=== PATIENT | female | born 1965 | race Caucasian/White ===

== ENCOUNTER 2022-10-12 08:15 | Day surgery (SDC) | payer OTHER, SELFPAY ==
[2022-09-22 11:50] VITALS: BMI 29.3
[2022-10-01 10:35] VITALS: BMI 29.5
--- NOTE | 2022-10-09 16:08 | PM.HPGS ---
History of Present Illness History of Present Illness Consent: Risks, benefits, and alternatives have been discussed and questions answered. Patient agrees to proceed with procedure. Chief complaint: History of Colon Polyps Narrative: Cindi Caraballo is a 57 year old female Referred for colon cancer screening. She had a adenomatous polyp removed from her rectum at the time of her last colonoscopy 6 years ago. Review of Systems Review of Systems: All systems reviewed & are unremarkable except as noted in HPI and below PMFSH Past Medical History Medical History Allergies Overweight (BMI 25.0-29.9) Family History Family History Father Hypertension Family history of lung cancer Grandparent Hypertension Family history of heart disease in male family member before age 55 Mother Family history of malignant neoplasm of breast in first degree relative Sibling Malignant neoplasm of prostate Family history of lung cancer Social History Social History Smoking status: Former smoker Tobacco type: cigarettes Second hand tobacco smoke exposure: No Additional smoking assessment comments: Pt states social smoker in 20's Alcohol intake: current Drinks per week: 4 Alcohol use details: 1 x month Substance use: never Substance use type: does not use Lack of Transportation: No Lack of Food: Never True Current Housing: I Have Housing Concerned About Future Housing: No Difficulty Paying Gas/Electric Bills: No Difficulty Paying for Meds: No Currently Unemployed: No Education: Bachelor's Degree Difficulty w/ Childcare or Family Care: No Living arrangements: with family Spiritual care concerns: No Meds Home Medications and Allergies Home Medications Medication Instructions Recorded Confirmed Type cetirizine 10 mg tablet (Zyrtec) 10 mg PO DAILY PRN Allergy Symptoms 08/19/22 10/12/22 History fluticasone propionate 50 1 spray intranasal DAILY 08/19/22 10/12/22 History mcg/actuation nasal spray,suspension (Flonase Allergy Relief) rhsywsqp-zehsmcxt-nuj C 250 1 tablet PO DAILY 08/19/22 10/01/22 History mg-herbal no.124 11.66 mg chewable tablet (Airborne Gummy) ewoqkbqonybg-tzzxurby-pefz 1 tablet PO DAILY 08/19/22 10/12/22 History fumarate 18 mg-folic acid 400 mcg tablet (One-A-Day Women's Complete) Allergies Allergy/AdvReac Type Severity Reaction Status Date / Time No Known Allergies Allergy Verified 10/12/22 08:45 Exam Const: General: alert Orientation/consciousness: patient oriented x3 Resp: Auscultation: clear to auscultation bilaterally Cardio: Rhythm: regular rhythm GI: GI Palp: Yes Soft to palpation and No Tenderness to palpation present (GI) Neuro: General: patient oriented x3 Assessment and Plan Assessment and plan (1) Screening for colon cancer: Code(s): Z12.11 - Encounter for screening for malignant neoplasm of colon Status: Acute Assessment and Plan: Colonoscopy with possible biopsy or polypectomy or cautery or injection of substances.
--- NOTE | 2022-10-12 08:19 | WPDANESEPPF ---
Anes - Initial Pre Proc Eval Procedure: Operation Date: 10/12/22 10:00 Proposed Procedures p Diagnostic Colonoscopy - Tobias Salmeron MD Date/Time: 10/12/22 08:19 Surgeon: Tobias Salmeron MD Pre Op Diagnosis: History of Colon Polyps Patient Data Age: 57 Gender: F Height: 1.63 m Weight: 78 kg Allergies Allergy/AdvReac Type Severity Reaction Status Date / Time No Known Allergies Allergy Verified 10/12/22 08:45 Home Medications Medication Instructions Recorded Confirmed Type cetirizine 10 mg tablet (Zyrtec) 10 mg PO DAILY PRN Allergy Symptoms 08/19/22 10/12/22 History fluticasone propionate 50 1 spray intranasal DAILY 08/19/22 10/12/22 History mcg/actuation nasal spray,suspension (Flonase Allergy Relief) igoojkve-xuslztpl-nfa C 250 1 tablet PO DAILY 08/19/22 10/01/22 History mg-herbal no.124 11.66 mg chewable tablet (Airborne Gummy) kbkfbaetswao-glkexaup-tgiy 1 tablet PO DAILY 08/19/22 10/12/22 History fumarate 18 mg-folic acid 400 mcg tablet (One-A-Day Women's Complete) Patient hx anesthesia problems: none Family hx anesthesia problems: none Results Review: All pre-operative results and documents have been reviewed as part of the pre-operative evaluation. [facility], [facility] Past Medical History Medical History (Updated 10/12/22 @ 08:21 by Olaf Mason MD) Allergies Overweight (BMI 25.0-29.9) Family History Family History Father Hypertension Family history of lung cancer Grandparent Hypertension Family history of heart disease in male family member before age 55 Mother Family history of malignant neoplasm of breast in first degree relative Sibling Malignant neoplasm of prostate Family history of lung cancer Social History Social History (Updated 08/19/22 @ 08:52 by WALLY Wall) Smoking status: Former smoker Tobacco type: cigarettes Second hand tobacco smoke exposure: No Additional smoking assessment comments: Pt states social smoker in 20's Alcohol intake: current Drinks per week: 4 Alcohol use details: 1 x month Substance use: never Substance use type: does not use Lack of Transportation: No Lack of Food: Never True Current Housing: I Have Housing Concerned About Future Housing: No Difficulty Paying Gas/Electric Bills: No Difficulty Paying for Meds: No Currently Unemployed: No Education: Bachelor's Degree Difficulty w/ Childcare or Family Care: No Living arrangements: with family Spiritual care concerns: No Anes - Eval Final PreProcedure Day of Procedure 10/12/22 08:19 Patient weight: overweight Heart: regular rate and rhythm Lungs: clear to auscultation and normal air movement Airway: Mallampati scale class II Neurological: alert and oriented Last oral intake: >/= 8 hours ASA classification: II Emergent: no Anesthetic plan: proceed Anesthesia type and monitoring: general GIVS Results Review: All pre-operative results and documents have been reviewed as part of the pre-operative evaluation. Informed Consent: The patient's anesthetic plan and its attendant risks and benefits were discussed with the patient/family/POA. Questions were solicited and answers provided to the satisfaction of the patient/family/POA.
[2022-10-12 08:47] VITALS: BP 137/98; PULSE 68; RESP 16; TEMP 36.8; O2SAT 99
[2022-10-12] MEDS: LACTATED RINGERS 1,000 ML 150 ML IV CONT (09:04)
[2022-10-12 10:30] VITALS: BP 106/80; PULSE 62; RESP 20; O2SAT 100
[2022-10-12 10:40] VITALS: BP 110/72; PULSE 62; RESP 20; O2SAT 99
[2022-10-12 10:50] VITALS: BP 118/80; PULSE 64; RESP 20; O2SAT 99
--- NOTE | 2022-10-12 11:31 | WPDANESPN ---
Anes - Prog Note Post-Op Date/Time: 10/12/22 11:31 Cardiovascular status: normal Respiratory status: normal Airway patency: baseline Mental status: baseline Post-Op hydration status: normal Vital Signs: Last Vital Signs Temp 36.8 C 10/12/22 08:47 Pulse 64 10/12/22 10:50 Resp 20 10/12/22 10:50 BP 118/80 10/12/22 10:50 Pulse Ox 99 10/12/22 10:50 O2 Del Method Room Air 10/12/22 10:50 Pain Score (VAS): 0 I/O: Intake & Output 10/11/22 10/12/22 10/12/22 23:59 07:59 15:59 Intake Total 300 Balance 300 Post-procedural complaints: none Patient Feedback: Patient satisfied with anesthetic care.
== END 2022-10-12 11:02 | disposition home or self-care (01) ==
PROVIDERS: PCP Internal Medicine; Visit Provider Internal Medicine Gastroenterology
PROC: 0DJD8ZZ Inspection of Lower Intestinal Tract, Via Natural or Artificial Opening Endoscopic (ICD-10-PCS; CPT 45378; principal; 2022-10-12 10:00)
DX: Z12.11 Encounter for screening for malignant neoplasm of colon (principal)
CPT/HCPCS: 45380

== ENCOUNTER 2022-10-12 09:00 | Outpatient (NON) | payer OTHER, SELFPAY | END 2022-10-12 09:01 | disposition home or self-care (01) | LOC: ANHLAB 10-14 08:04 | PROVIDERS: PCP Internal Medicine; Visit Provider Internal Medicine Gastroenterology | DX: Z12.11 Encounter for screening for malignant neoplasm of colon (principal) | CPT/HCPCS: 88305 ==

== ENCOUNTER 2024-09-22 08:21 | Outpatient (CLI) | payer OTHER, SELFPAY ==
--- OUTSIDE RECORDS SUMMARY | 2024-09-22 08:24 | XMS_ITS | Clinical Summary ---
Author Organization [facility] Address [address] [address] [place] [address] Care Team Providers Care Security Professionals Name Role Phone Luciano Sanders DO Primary Care Provider +1- [phone] Allergies No known active allergies Medications fluticasone (FLONASE) 50 mcg/actuation nasal spray 2 times daily. 05/14/2016 Active sodium chloride (SALINE NASAL) 0.65 % nasal spray 2 sprays in each nare bid 05/14/2016 Active olopatadine 0.6 % spray,non-aeros ol 1-2 sprays each nostril daily 1 Bottle 5 09/15/2017 Active cetirizine (ZyrTEC) 10 mg capsule Active prednisoLONE acetate (PRED FORTE) 1 % ophthalmic suspension SHAKE LIQUID AND INSTILL 1 DROP IN BOTH EYES TWICE DAILY FOR 2 WEEKS 04/19/2024 Active Active Problems Problem Noted Date Diagnosed Date Tinnitus, bilateral 05/25/2024 Annual physical exam 06/04/2023 Assessment & Plan (06/04/2023 8:40 AM COTTON BALL BAGGER): Labs as above. Will call with results when available. Increase exercise to 30 minutes daily and consume healthy foods. Follow up as needed. Preventative health care 06/04/2023 Acute bacterial sinusitis 04/17/2022 Assessment & Plan (06/08/2022 4:08 PM COTTON BALL BAGGER): Augmentin 1 tablet every 12 hours for 10 days. Take with food and full glass of water. Take all of antibiotic. Consider allergy therapy: Zyrtec and Flonase daily. Consider Sudafed 12 HR or Consider Mucinex ER, 600mg, 1-2 tabs every 12 hours as needed for thick mucous. Consider Delsym 2 tsp every 12 hours as needed for cough. Cool mist humidifier in the bedroom. Assessment & Plan (04/17/2022 11:51 AM COTTON BALL BAGGER): Augmentin 1 tablet every 12 hours for 10 days Continue Mucinex DM and Sudafed May want to start Zyrtec Acute non-recurrent maxillary sinusitis 06/25/19 Overview (06/24/2021): Augmentin 1 tablet twice a day for 7 days Recommend zyrtec and flonase If symptoms persists or worsen recommend following up with specialist Hordeolum externum of left lower eyelid 06/25/19 Assessment & Plan (06/24/2021 9:03 AM CDT): Warm compresses to eye 5-10 minutes 3-5 times per day. Chronic infection of sinus 05/14/2016 Chronic rhinitis 05/14/2016 Immunizations Immunization Administration Dates Next Due Influenza, Quadrivalent, Spl it, Preservative Free, Intramuscular 03/26/2022 Pfizer Sars-Cov-2 Bivalent Vaccination (12+ YRS) 03/26/2022 Medical History Medical History Date Comments Tinnitus spring Family History Medical History Relation Name Comments Cancer Brother 1 Luciano Dacosta Cancer Brother 2 Bob Dacosta Cancer Father Allen. R. Bills Cancer Maternal Grandmother Melida Hunt Cancer Mother Chiquita Dacosta Stroke Paternal Grandmother Cherelle Dacosta Relation Name Status Comments Brother 1 Luciano Khans Brother 2 Bob Khans Father Allen. R. Shanks Maternal Grandmother Melida Shearburn Mother Chiquita Dacosta Paternal Grandmother Cherelle Dacosta Social History Tobacco Use Types Packs/Day Years Used Date Smoking Tobacco: Never Comments Unknown Sex and Gender Information Value Date Recorded Sex Assigned at Not on file Legal Sex Female 11:39 AM COTTON BALL BAGGER Gender Identity Not on file Sexual Orientation Not on file Obstetrics History Last Filed Vital Signs Vital Sign Reading Time Taken Comments Blood Pressure 129/81 06/04/2023 7:58 AM COTTON BALL BAGGER Pulse 84 06/04/2023 7:58 AM COTTON BALL BAGGER Temperature 36.6 C (97.8 F) 06/04/2023 7:58 AM COTTON BALL BAGGER Respiratory Rate 16 06/04/2023 7:58 AM COTTON BALL BAGGER Oxygen Saturation 98% 06/04/2023 7:58 AM COTTON BALL BAGGER Inhaled Oxygen Concentration - - Weight 77.1 kg (170 lb) 06/24/2021 9:05 AM CDT Height 162.6 cm (5' 4) 06/24/2021 9:05 AM CDT Body Mass Index 29.18 06/24/2021 9:05 AM CDT Plan of Treatment Health Maintenance Due Date Last Done Comments Breast Cancer Screening-Mammogram 1964 Cervical Cancer Screening 1964 Colon Cancer Screening-Colonoscopy 1964 Depression Screening 1964 Hepatitis C Screening 1964 DTaP/Tdap/Td Vaccine (1 - Tdap) 1975 Hepatitis B Screening 1982 Regular Well Visit/Exam 18-64 1982 Zoster Vaccine (1 of 2) 2014 Covid-19 Vaccine ( - season) 2023 03/26/2022, 03/01/2021, 06/28/2020, Additional history exists Influenza Vaccine (Season Ended) 2024 03/26/2022, 02/22/2019, 03/30/2018, Additional history exists Pneumococcal vaccine <65 Aged Out No longer eligible based on patient's age to complete [place] [address] [facility] CHOICE PLUS [facility] H[facility]/PPO Address: [facility] [address] [place] [address] [place] [address] [place] [address] Care Teams Security Professionals Relationship Specialty Start Date End Date Luciano Sanders DO PCP - General 06/18/16
--- OUTSIDE RECORDS SUMMARY | 2024-09-22 08:24 | XMS_ITS | Referral Summary ---
Author Organization [facility] Address [address] [place] [address] Care Team Providers Care Alodize Machine Operator Name Role Phone Luciano Sanders DO Primary Care Provider +1- [phone] Allergies No known active allergies Medications fluticasone [...] 06/04/2023 Assessment & Plan (06/04/2023 8:40 AM GARNETT MECHANIC): Labs as above. Will call with results when available. Increase exercise to 30 minutes daily and consume healthy foods. Follow up as needed. Preventative health care 06/04/2023 Acute bacterial sinusitis 04/17/2022 Assessment & Plan (06/08/2022 4:08 PM GARNETT MECHANIC): Augmentin 1 tablet every 12 hours for [...] bedroom. Assessment & Plan (04/17/2022 11:51 AM GARNETT MECHANIC): Augmentin 1 tablet every 12 hours for [...] Pfizer Sars-Cov-2 Bivalent Vaccination (12+ YRS) 03/26/2022 Social History Tobacco Use Types Packs/Day Years Used Date Smoking Tobacco: Never Comments Unknown Sex and Gender Information Value Date Recorded Sex Assigned at Not on file Legal Sex Female 11:39 AM GARNETT MECHANIC Gender Identity Not on file Sexual Orientation Not on file Last Filed Vital Signs Vital Sign Reading Time Taken Comments Blood Pressure 129/81 06/04/2023 7:58 AM GARNETT MECHANIC Pulse 84 06/04/2023 7:58 AM GARNETT MECHANIC Temperature 36.6 C (97.8 F) 06/04/2023 7:58 AM GARNETT MECHANIC Respiratory Rate 16 06/04/2023 7:58 AM GARNETT MECHANIC Oxygen Saturation 98% 06/04/2023 7:58 AM GARNETT MECHANIC Inhaled Oxygen Concentration - - Weight 77.1 kg (170 lb) 06/24/2021 9:05 AM CDT Height 162.6 cm (5' 4) 06/24/2021 9:05 AM CDT Body Mass Index 29.18 06/24/2021 9:05 AM CDT Plan of Treatment Not on [place] [place] [address] [facility] CHOICE PLUS [facility] H[facility]/PP[place]: [place] [address] [place] [address] [place] [address] Care Teams Alodize Machine Operator Relationship Specialty Start Date End Date Luciano Sanders DO PCP - General 06/18/16
--- OUTSIDE RECORDS SUMMARY | 2024-09-22 08:24 | XMS_ITS | Clinical Summary ---
Author Organization [facility] Address [address] Attn: Epic Prelude ADT [place] [address] Care Team Providers Care Logistics Supervisor Name Role Phone Kylie Hurley MD Primary Care Provider +1- [phone] Social History Tobacco Use Types Packs/Day Years Used Date Smoking Tobacco: Never Assessed Comments Unknown Sex and Gender Information Value Date Recorded Sex Assigned at Not on file Legal Sex Female 5:19 AM DIGITAL CIRCUIT DESIGNER Gender Identity Not on file Sexual Orientation Not on file Plan of Treatment Health Maintenance Due Date Last Done Comments DTAP/TDAP/TD VACCINES (1 - Tdap) 1983 HPV/Cotest (21-29) 1985 CERVICAL CANCER SCREENING 1994 HPV/Cotest (30-65) 1994 PAP SMEAR 1994 BREAST CANCER SCREENING 2004 COLORECTAL SCREENING 2009 Colorectal Cancer Screening 2009 FIT-DNA Q 3 years 2009 FIT/FOBT Q 1 year 2009 Flex Sig/CT Colonography Q 5 years 2009 ZOSTER VACCINE (1 of 2) 2014 INFLUENZA VACCINE (#1) 2023 RSV VACCINE (60+ or ) (1 - 1-dose 75+ series) 2039 HEPATITIS B VACCINES Aged Out No long er eligible based on patient's age to complete this topic Care Teams Logistics Supervisor Relationship Specialty Start Date End Date Kylie Hurley MD [address] [place] [address] PCP - General 03/29/15
--- OUTSIDE RECORDS SUMMARY | 2024-09-22 08:24 | XMS_ITS | Clinical Summary ---
Author Organization [facility] Address [address] [place] [address] Care Team Providers Care Signal Worker Name Role Phone Unavailable Primary Care Provider Unavailabl e Source Comments [facility],non-owned Affiliates and Associated Physician Practices is amultiple site organization consisting of ambulatory clinics and hospital sitesin [place], [place], [place] and [place]. This disclosure is being madepursuant to the Care Everywhere program and may not contain all information available regarding this patient. Last updated 17.[facility] [employer] Social History Tobacco Use Types Packs/Day Years Used Date Smoking Tobacco: Never Assessed Comments Unknown Sex and Gender Information Value Date Recorded Sex Assigned at Not on file Legal Sex Female 6:02 AM CHEF FRENCH Gender Identity Not on file Sexual Orientation Not on file Plan of Treatment Health Maintenance Due Date Last Done Comments COLOGUARD (AGES 45-75) - COL ON CA SCREENING 1964 COLON MONITORING 1964 COLONOSCOPY - COLON CA SCREENING 1964 CT COLONOGRAPHY - COLON CA SCREENING 1964 Colorectal Cancer Screening 1964 FIT - COLON CA SCREENING 1964 FLEX SIG - COLON CA SCREENING 1964 LIPID TESTING 1964 MAMMOGRAM 1964 HIV SCREENING 1979 HEPATITIS C SCREENING 04/27/1982 DTAP/TDAP/TD VACCINES (1 - Tdap) 1983 PAP SMEAR 1985 PAP with HPV 1994 PNEUMOCOCCAL VACCINE 50+ (1 of 1 - PCV) 2014 ZOSTER VACCINE (1 of 2) 2014 COVID-19 VACCINE ( - 2023-2 5 season) 2023 DEPRESSION SCREENING 04/12/2024 INFLUENZA VACCINE (Season Ended) 2024 Respiratory Syncytial Virus (RSV) Vaccine Pt: or over 60 yrs (1 - 1-dose 75+ series) 2039 HEPATITIS B VACCINE Aged Out No longe r eligible based on patient's age to complete this topic HIB VACCINE Aged Out No longer eligi ble based on patient's age to complete this topic HPV VACCINE Aged Out No longer eligi ble based on patient's age to complete this topic MENINGOCOCCAL (Group B) VACC INE SHARED DECISION-MAKING Aged Out No longer eligibl e based on patient's age to complete this topic MENINGOCOCCAL GROUPS A/C/Y/W VACCINE Aged Out No longer eligible b ased on patient's age to [place] [address] [facility] [place] [address]
--- OUTSIDE RECORDS SUMMARY | 2024-09-22 08:24 | XMS_ITS | Encounter Summary ---
Author Organization [facility] Address [address] [place] [address] Care Team Providers Care Consignee Name Role Phone Kylie Hurley MD Primary Care Provider +1- [phone] Encounter Details Date Type Department Care Team (Late st Contact Info) Description 12/21/2002 Outpatient Historical HIS MAMM VAN Kylie Hurley MD SCREENING MAMM-MAILG NEOPL-OTHER (Primary Dx) Social History Tobacco Use Types Packs/Day Years Used Date Smoking Tobacco: Never Assessed Comments Unknown Sex and Gender Information Value Date Recorded Sex Assigned at Not on file Legal Sex Female 5:19 AM EARLY INTERVENTIONIST Gender Identity Not on file Sexual Orientation Not on file documented as of this encounter Plan of Treatment Not on file documented as of this encounter Visit Diagnoses Diagnosis Other screening mammogram- Primary documented in this encounter Care Teams Consignee Relationship Specialty Start Date End Date Kylie Hurley MD [address] [address] PCP - General 03/29/15 documented as of this encounter
[2024-09-22 12:24] LABS: Basophils Absolute Auto 0.1 K/mm3 (0.0-0.1); Eosinophils Absolute Auto 0.2 K/mm3 (0-0.3); Eosinophils Percent Auto 3.7 % (0-4.4); Hematocrit 43.3 % (37.0-47.0); Hemoglobin 13.6 g/dL (12.0-15.0); Immature Granulocyte Absolute 0.01 K/mm3 (0.00-0.031); Immature Granulocyte Percent A 0.2 % (0-0.5); Lymphocytes Absolute Auto 1.85 K/mm3 (0.9-3.2); Lymphocytes Percent Auto 37.9 % (18.3-44.2); Mean Corpuscular HGB Conc 31.4 g/dl (32-36); Mean Corpuscular Hemoglobin 30.6 pg (26-34); Mean Corpuscular Volume 97.3 fl (80-100); Mean Platelet Volume 10.3 fl (7.4-10.4); Monocytes Absolute Auto 0.4 K/mm3 (0.1-0.6); Neutrophils Absolute Auto 2.3 K/mm3 (1.3-6.7); Neutrophils Percent Auto 47.2 % (45.5-73.1); Platelet Count Result 313 k/mm3 (150-375); Red Blood Count 4.45 M/mm3 (4.2-5.4); Red Cell Distribution Width 12.6 % (11.5-14.5); White Blood Count 4.9 K/mm3 (4.5-10.0)
[2024-09-22 12:37] LABS: Alanine Aminotransferase 33 U/L (6-35); Albumin Level 4.3 g/dL (3.5-5.1); Alkaline Phosphatase 51 U/L (38-126); Anion Gap 5 mmol/L (4-12); Aspartate Amino Transferase 66 U/L (14-36); Bilirubin,Total 0.5 mg/dL (0.2-1.3); Blood Urea Nitrogen 12 mg/dL (7-17); Calcium 9.4 mg/dL (8.4-10.2); Carbon Dioxide 29 mmol/L (22-30); Chloride 104 mmol/L (98-107); Cholesterol 224 mg/dL (0-200); Estimated Glomerular Filt Rate > 60; Glucose 82 mg/dL (65-110); HDL Direct 78 mg/dL; Potassium 4.3 mmol/L (3.4-5.0); Sodium 138 mmol/L (137-145); Total Protein 7.3 g/dL (6.3-8.2); Triglycerides 58 mg/dL (<150)
[2024-09-22 12:48] LABS: LDL Cholesterol Direct 104 mg/dL
== END 2024-09-22 08:22 | disposition home or self-care (01) ==
LOC: ANHGOSHLAB 08:22
PROVIDERS: PCP Internal Medicine; Visit Provider Nurse Practitioner
DX: E55.9 Vitamin D deficiency, unspecified (principal); Z13.220 Encounter for screening for lipoid disorders; Z13.228 Encounter for screening for other metabolic disorders
CPT/HCPCS: 36415; 80053; 80061; 82306; 85025